=== PATIENT | female | born 1950 | race Caucasian/White ===

== ENCOUNTER 2019-02-22 14:07 | Inpatient (IN) | payer MEDICARE, MEDICAID ==
[~2019-02-22] VITALS: Ht 160 cm; Wt 49.9 kg
[~2019-02-22 14:07] MED LIST: ALBU8.5H8 INH; ASPI-1169 PO; ATOR40TA PO; CALC-20 PO; DONE5TAB34 PO; ESOM20CA32 PO; FLUT1DIS3 INH; PANT40TA2 PO
--- NOTE | 2019-02-22 14:53 | NUR ---
[facility] FOR MEDICAL CLEARANCE, ON 5150 FOR DTS. PT IS EXTREMELY AGITATED, YELLING THAT SHE NEEDS TO GO OUTSIDE AND SMOKE, AND WANTS TO GO HOME. SHE HAS PERIODS OF CALM WHERE SHE COMPLIMENTS STAFF. NO ACUTE DISTRESS NOTED. SKIN IS WARM, DRY, INTACT. READY FOR EVAL.
[2019-02-22] MEDS ORDERED: OLANZAPINE 10 MG VIAL IM ONE ×2 (15:09→15:30)
[2019-02-22 15:11] LABS: BASOPHILS # (AUTO) 0.1 /CMM (0.0-0.2); BASOPHILS % (AUTO) 0.7 % (0.0-2.0); EOSINOPHILS % (AUTO) 1.3 % (0.0-6.0); HEMATOCRIT 41 % (33-45); HEMOGLOBIN 13.5 g/dL (11.5-14.8); LYMPHOCYTES # (AUTO) 2.3 /CMM (0.8-4.8); LYMPHOCYTES % (AUTO) 22.2 % (20.0-44.0); MEAN CORPUSCULAR HGB CONC 33 g/dl (31.0-36.0); MEAN CORPUSCULAR VOLUME 90 fL (82-100); MONOCYTES # (AUTO) 0.8 /CMM (0.1-1.30); MONOCYTES % (AUTO) 8.1 % (2.0-12.0); NEUTROPHILS % (AUTO) 67.7 % (43.0-81.0); PLATELET COUNT (AUTO) 396 /CMM (150-450); RED BLOOD CELL COUNT(AUTO) 4.56 MIL/uL (4.0-5.2); WHITE BLOOD COUNT (AUTO) 10.3 K/uL (4.3-11.0)
[2019-02-22 15:19] LABS: CALCIUM, SERUM 9.7 mg/dL (8.5-10.1); CARBON DIOXIDE 28 mmol/L (21-32); CHLORIDE 108 mmol/L (98-107); CREATININE 0.8 mg/dL (0.6-1.3); GLUCOSE 110 mg/dL (74-106); POTASSIUM 4.1 mmol/L (3.5-5.1); SODIUM SERUM 143 mmol/L (136-145); UREA NITROGEN, BLOOD 23 mg/dL (7-18)
[2019-02-22] MEDS ORDERED: ESCI10TA PO (15:27)
[2019-02-22] MEDS ORDERED: OLAN10TA3 PO (15:27)
[2019-02-22] MEDS ORDERED: BENZ0.5T43 PO (15:27)
[2019-02-22] MEDS ORDERED: ALBU8.5H8 INH (15:28)
[2019-02-22] MEDS ORDERED: ACET-868 PO (15:28)
[2019-02-22 15:30] LABS: ALANINE AMINOTRANSFERASE 27 U/L (12-78); ALBUMIN 3.7 g/dL (3.4-5.0); ALCOHOL, BLOOD < 3 mg/dL (0-0); ALKALINE PHOSPHATASE 107 U/L (46-116); ASPARTATE AMINOTRANSFERASE 16 U/L (15-37); BILIRUBIN,DIRECT 0.1 mg/dL (0.0-0.2); BILIRUBIN,TOTAL 0.2 mg/dL (0.2-1.0); TOTAL PROTEIN, SERUM 7.3 g/dL (6.4-8.2)
[2019-02-22 15:42] LABS: ACETAMINOPHEN 0 ug/ml (10-30)
--- NOTE | 2019-02-22 15:45 | NUR ---
REPORT GIVEN TO ELLIS GILES FOR JODY
--- NOTE | 2019-02-22 16:02 | NUR ---
URINE COLLECTED VIA STRAIGHT CATH PER PROTOCOL AND SENT TO STAT LAB
[2019-02-22 16:10] LABS: APPEARANCE,URINE Clear (CLEAR); BILIRUBIN,URINE Negative (NEGATIVE); BLOOD, URINE Negative Ery/uL (NEGATIVE); COLOR,URINE Yellow (YELLOW); KETONES,URINE Negative (NEGATIVE); LEUKOCYTE ESTERASE ,URINE Negative (NEGATIVE); NITRITE, URINE Negative (NEGATIVE); PH,URINE 5.5 (5.0-8.0); PROTEIN,URINE Negative (NEGATIVE); UGLUCOSE Negative (NEGATIVE); UROBILINOGEN,URINE 0.2 EU/dL (0.2)
--- NOTE | 2019-02-22 16:55 | NUR ---
[facility]
[2019-02-22] MEDS ORDERED: BLOOD SUGAR DIAGNOSTIC 1 EACH STRIP IN ONE (17:30)
[2019-02-22] MEDS ORDERED: MAG HYDROX/AL HYDROX/SIMETH 30 ML UDC PO PRN (17:30)
[2019-02-22] MEDS ORDERED: MAGNESIUM HYDROXIDE 30 ML UDC PO PRN (17:30)
--- NOTE | 2019-02-22 18:25 | NUR ---
GPS/RN-NOTES ADMITTED 68 YEARS OLD FEMALE PATIENT ON 5150 FOR DTS. PATIENT WAS UNDER THE CARE OF DR. MOURA ( PSYCHIATRIST) AND FRANCE CONTRERAS ( NETWORK ENGINEERING ADVISOR) BOTH MADE AWARE OF THE ADMISSION. UPON FACE TO FACE ASSESSMENT PATIENT ALERT ORIENTED X2 AMBULATORY WITH STEADY GAIT.HOLD WAS VERIFIED AND ADVISEMENT GIVEN TO THE PATIENT .PATIENT DENIES SI/HI AT THIS TIME. PATIENT'S RIGHT GIVEN AND WAS DISCUSS WITH UNDERSTANDING. CONTRABAND DONE ,REFUSED FULL BODY ASSESSMENT AT THIS TIME. PATIENT WAS ORIENTED IN THE UNIT AND UNIT POLICIES. PER RECORD PATIENT HAD OMAR CAPUTO TRUCK DRIVER HEAVY CALL [phone] AND LEFT [facility] VIA VOICE MAIL.STILL AWAITING FOR CALL RAYNA. WILL ENDORSE TO INCOMING NURSE FOR CONTINUITY OF ADMISSION AND CARE .
[2019-02-22 18:36] VITALS: BP 138/91
[2019-02-22] MEDS ORDERED: ACETAMINOPHEN 325 MG TABLET PO PRN (19:30)
[2019-02-22] MEDS ORDERED: ALBUTEROL FS 2.5 MG/3 ML VIAL.NEB NEB PRN (19:37)
[2019-02-22 20:00] VITALS: BP 110/74
[2019-02-22] MEDS: ATORVASTATIN 40 MG TABLET PO SCH (21:55)
[2019-02-23] MEDS: LORAZEPAM 0.5 MG TABLET PO PRN (06:28)
--- NOTE | 2019-02-23 06:30 | NUR ---
RN NOTES PT. is anxious and wants to have cigarette.. charge nurse talked to the pt and explained the no smoking policy of the unit but pt. still wants to have some cigarette.. ativan 1mg po given for anxiety, v/s stable
[2019-02-23 07:34] LABS: CHOLESTEROL 98 mg/dL (<200); HDL CHOLESTEROL 45 mg/dL (40-60); LDL 48 mg/dL (0-99); TRIGLYCERIDES 87 mg/dL (30-150)
[2019-02-23 07:40] LABS: ALBUMIN 3.3 g/dL (3.4-5.0); BILIRUBIN,TOTAL 0.5 mg/dL (0.2-1.0); CALCIUM, SERUM 9.4 mg/dL (8.5-10.1); CREATININE 0.8 mg/dL (0.6-1.3); POTASSIUM 4.3 mmol/L (3.5-5.1); TOTAL PROTEIN, SERUM 6.8 g/dL (6.4-8.2)
[2019-02-23 08:00] VITALS: BP 117/52
[2019-02-23] MEDS: NICOTINE PATCH (14MG) 14 MG PATCH.TD24 TD SCH (08:14)
[2019-02-23] MEDS: FLUTICASONE/VILANTEROL 1 EACH BLST.W.DEV IH SCH (08:14)
[2019-02-23] MEDS: OLANZAPINE 5 MG TABLET PO SCH (19:03)
[2019-02-23] MEDS: BENZTROPINE MESYLATE (1 MG) 1 MG TABLET PO SCH (19:03)
[2019-02-23 20:16] VITALS: BP 131/61
[2019-02-23] MEDS: TEMAZEPAM 7.5 MG CAPSULE PO PRN (22:13)
[2019-02-23] MEDS: ATORVASTATIN 40 MG TABLET PO SCH (22:13)
[2019-02-24] MEDS: OLANZAPINE 5 MG TABLET PO SCH ×2 (06:39→18:00)
[2019-02-24] MEDS: BENZTROPINE MESYLATE (1 MG) 1 MG TABLET PO SCH ×2 (06:39→18:00)
[2019-02-24 08:00] VITALS: BP 112/66
--- NOTE | 2019-02-24 08:26 | NUR ---
initial pt walking around unit stating she [facility]. Now she wants to go home ideals are3 flighty unsure what she wants.
[2019-02-24] MEDS ORDERED: OLANZAPINE 5 MG TABLET PO SCH (09:00)
[2019-02-24] MEDS: SERTRALINE HCL 50 MG TABLET PO SCH (09:09)
[2019-02-24] MEDS: NICOTINE PATCH (14MG) 14 MG PATCH.TD24 TD SCH (09:09)
[2019-02-24] MEDS: FLUTICASONE/VILANTEROL 1 EACH BLST.W.DEV IH SCH (09:16)
--- NOTE | 2019-02-24 09:46 | NUR ---
WOUND CARE CONSULT: PT PRESENTS AMBULATORY AND CONTINENT WITH LESION TO ABDOMEN WHICH PT STATES IS PSORIASIS. DEFER TO MD FOR LESION. WILL SEE PRN. CURRENT MAXIMILIANO SCORE IS 22.
--- NOTE | 2019-02-24 13:30 | NUR ---
PT KEEPS ASKING TO TAKE TO [facility] THEN APARTMENT IN [place] TO GET FLAT SCREEN TV HOWEVER PT RESIDES AT [facility]
[2019-02-24] MEDS: LORAZEPAM 0.5 MG TABLET PO PRN ×2 (13:48→21:35)
--- NOTE | 2019-02-24 14:46 | NUR ---
GROUP NOTE: SW encouraged pt to participate in group therapy on this present day to discuss "discharge planning." Pt is disruptive, confused with disorganized thought process and unable to sit in a group setting and participate in a group discussion.
--- NOTE | 2019-02-24 14:57 | NUR ---
SW called the pts social scientist, Olimpia ([phone]), and left her a voicemail stating that the SW would like to discuss the pts case.
--- NOTE | 2019-02-24 15:48 | NUR ---
Initial Discharge Plan: Pt is currently resides at [facility] located at [address] [place] [address]; . MADY was not able to speak to the recycle coordinator to determine whether or not the pt can return because she was out today. MADY will work with the pt and the MD regarding appropriate discharge planning. SW will form a safe and proper discharge.
--- NOTE | 2019-02-24 15:49 | NUR ---
Tonja from [facility] located at [address] [place] [address]; called the SW and stated that the pt can return to the facility once she is discharged from the hospital.
[2019-02-24 16:19] VITALS: BP 125/98
--- NOTE | 2019-02-24 18:31 | NUR ---
CLOSING PT GIVEN ALL MEDICATIONS NEEDS TENDED TO KEPT SAFE BED IN LOW POSITION WITH GIVEN REPORT TO PM NURSE FOR CONTINUITY OF CARE
[2019-02-24 20:00] VITALS: BP 125/94
[2019-02-24] MEDS: ATORVASTATIN 40 MG TABLET PO SCH (21:35)
[2019-02-24] MEDS: TEMAZEPAM 7.5 MG CAPSULE PO PRN (21:36)
[2019-02-25] MEDS: BENZTROPINE MESYLATE (1 MG) 1 MG TABLET PO SCH ×2 (06:29→18:41)
[2019-02-25] MEDS: OLANZAPINE 5 MG TABLET PO SCH ×2 (06:29→18:41)
[2019-02-25 08:00] VITALS: BP 103/63
[2019-02-25] MEDS: LORAZEPAM 0.5 MG TABLET PO PRN (08:01)
[2019-02-25] MEDS: SERTRALINE HCL 50 MG TABLET PO SCH (08:01)
[2019-02-25] MEDS: NICOTINE PATCH (14MG) 14 MG PATCH.TD24 TD SCH (08:01)
--- NOTE | 2019-02-25 08:01 | NUR ---
a little agitated,given ativan 1 mg po.
[2019-02-25] MEDS: FLUTICASONE/VILANTEROL 1 EACH BLST.W.DEV IH SCH (09:26)
[2019-02-25] MEDS: ACETAMINOPHEN 325 MG TABLET PO PRN (10:59)
--- NOTE | 2019-02-25 11:09 | NUR ---
medicated for headache with tylenol 650 mg po.
[2019-02-25 16:00] VITALS: BP 112/54
--- NOTE | 2019-02-25 19:04 | NUR ---
out at [facility].multiple requests.
--- NOTE | 2019-02-25 19:10 | NUR ---
RN INITIAL NOTES: RECEIVED REPORT FROM CHAO GILES. PT IN BED, AWAKE, A/O X2-3. ON RA RESPIRATIONS EVEN AND UNLABORED. DENIES ANY PAIN OR DISCOMFORT AT THIS TIME. AMBULATORY, SELF CARE. DENIES ANY SI/HI AT THIS TIME. PER REPORT PT GETS EASILY IRRITATED WHEN ASKED FOR QUESTIONS. PT REFUSED SKIN ASSESSMENT AT THIS TIME. EDUCATION PROVIDED TO PT. SAFETY PRECAUTIONS FOR FALL INITIATED, SIDE RAILS UP X3 FOR SAFETY. WILL CONTINUE MONITORING [id number] FOR SAFETY AND OTHER CHANGES IN BEHAVIOR.
[2019-02-25 20:00] VITALS: BP 112/77
[2019-02-25] MEDS: ATORVASTATIN 40 MG TABLET PO SCH (21:24)
[2019-02-25] MEDS: TEMAZEPAM 7.5 MG CAPSULE PO PRN (21:25)
--- NOTE | 2019-02-25 21:25 | NUR ---
prn restoril: pt requested for sleeping pill, prn restoril administered at this time.
[2019-02-26] MEDS: OLANZAPINE 5 MG TABLET PO SCH ×2 (06:20→18:03)
[2019-02-26] MEDS: BENZTROPINE MESYLATE (1 MG) 1 MG TABLET PO SCH ×2 (06:20→18:03)
[2019-02-26 08:00] VITALS: BP 116/61
[2019-02-26] MEDS: LORAZEPAM 0.5 MG TABLET PO PRN ×2 (08:12→20:22)
[2019-02-26] MEDS: NICOTINE PATCH (14MG) 14 MG PATCH.TD24 TD SCH (08:12)
[2019-02-26] MEDS: SERTRALINE HCL 50 MG TABLET PO SCH (08:12)
--- NOTE | 2019-02-26 08:12 | NUR ---
rn notes administered ativan 1 mg po prn for anxiety, yelling, v/s taken bp-116/61, p-67, continued monitoring.
[2019-02-26] MEDS: FLUTICASONE/VILANTEROL 1 EACH BLST.W.DEV IH SCH (08:14)
[2019-02-26 15:54] VITALS: BP 150/68
[2019-02-26 20:30] VITALS: BP 134/62
[2019-02-26] MEDS: ATORVASTATIN 40 MG TABLET PO SCH (21:09)
[2019-02-26] MEDS: TEMAZEPAM 7.5 MG CAPSULE PO PRN (22:59)
[2019-02-27] MEDS: BENZTROPINE MESYLATE (1 MG) 1 MG TABLET PO SCH ×2 (06:08→17:57)
[2019-02-27] MEDS: OLANZAPINE 5 MG TABLET PO SCH ×2 (06:08→17:57)
[2019-02-27 08:00] VITALS: BP 149/85
[2019-02-27] MEDS: SERTRALINE HCL 50 MG TABLET PO SCH (08:51)
[2019-02-27] MEDS: FLUTICASONE/VILANTEROL 1 EACH BLST.W.DEV IH SCH (08:51)
[2019-02-27] MEDS: NICOTINE PATCH (14MG) 14 MG PATCH.TD24 TD SCH (08:51)
--- NOTE | 2019-02-27 09:50 | NUR ---
Sundeep from [facility] called the SW and inquired about when the pt would be returning to the facility. SW stated that she will inform the facility once the psychiatrist believes that the pt is stable enough to return.
[2019-02-27] MEDS: LORAZEPAM 0.5 MG TABLET PO PRN ×2 (10:55→19:29)
--- NOTE | 2019-02-27 11:00 | NUR ---
RN NOTES PT NOTED BECOMING INCREASINGLY MORE AND MORE AGITATED. PRN 1 MG ATIVAN GIVEN. WILL CONTINUE TO MONITOR.
--- NOTE | 2019-02-27 13:25 | NUR ---
SW called the pts social media manager, Olimpia ([phone]), and left her a voicemail stating that the SW would like to discuss the pts case.
--- NOTE | 2019-02-27 13:36 | NUR ---
MADY spoke to the pts geriatric social work professor, Olimpia ([phone]), and was informed that [facility] has an open case with the pt and that they are requesting that the pt be placed in a locked facility. She provided the SW with the [facility] SW contact information.
--- NOTE | 2019-02-27 14:10 | NUR ---
SW called pts [facility] Cabin Supervisor, Ronda Carrera ([phone]), and left a voicemail stating that the SW would like to discuss the pt and her case.
--- NOTE | 2019-02-27 15:33 | NUR ---
Group Note: SW encouraged pt to participate in group therapy on 02/27/19 at 2pm discussing discharge planning. Pt is disruptive, confused with disorganized thought process and unable to sit in a group setting and participate in a group discussion.
[2019-02-27 16:00] VITALS: BP 145/95
[2019-02-27 19:57] VITALS: BP 120/73
[2019-02-27] MEDS: OLANZAPINE 10 MG TABLET PO SCH (21:38)
[2019-02-27] MEDS: ATORVASTATIN 40 MG TABLET PO SCH (21:38)
[2019-02-27] MEDS: TEMAZEPAM 7.5 MG CAPSULE PO PRN (22:57)
[2019-02-28] MEDS: LORAZEPAM 0.5 MG TABLET PO PRN ×2 (04:17→08:36)
[2019-02-28] MEDS: BENZTROPINE MESYLATE (1 MG) 1 MG TABLET PO SCH ×2 (06:19→17:50)
[2019-02-28] MEDS: OLANZAPINE 5 MG TABLET PO SCH (08:17)
[2019-02-28] MEDS: SERTRALINE HCL 50 MG TABLET PO SCH (08:18)
[2019-02-28] MEDS: NICOTINE PATCH (14MG) 14 MG PATCH.TD24 TD SCH (08:18)
[2019-02-28] MEDS: FLUTICASONE/VILANTEROL 1 EACH BLST.W.DEV IH SCH (08:19)
--- NOTE | 2019-02-28 08:36 | NUR ---
RN NOTES ADMINISTERED ATIVAN 1 MG PO PRN FOR ANXIETY, IRRITABLE, PARANOIA, V/S TAKEN BP-120/30, P-83, CONTINUED MONITORING.
--- NOTE | 2019-02-28 15:33 | NUR ---
Group Note: SW encouraged pt to participate in group therapy on 02/28/19 at 2pm discussing support systems and their impact. Pt was disruptive, confused with disorganized thought process and was unable to sit in a group setting and participate in a group discussion. Pt stated that she wanted to go to her home to retrieve her belongings. SW informed her of her reality and that her home is a SNF and the pt refused to continue speaking.
[2019-02-28 16:03] VITALS: BP 127/77
--- NOTE | 2019-02-28 19:45 | NUR ---
RN NOTES RECEIVED REPORT FROM [employer] RN. FOUND Pt AWAKE, WALKING AROUND DOWN THE AZAR. NO S/S OF ACUTE DISTRESS OR SOB NOTED. RESPIRATIONS EVEN AND UNLABORED WITH EQUAL CHEST RISE AND FALL. Pt IS ABLE TO COMMUNICATE AND MAKE NEEDS KNOWN AND ANSWER QUESTIONS. SAFETY MEASURES IN PLACE. WILL CONTINUE TO MONITOR Pt's CONDITION AND SAFETY THROUGHOUT THE NIGHT.
[2019-02-28 21:08] VITALS: BP 100/59
[2019-02-28] MEDS: OLANZAPINE 10 MG TABLET PO SCH (21:08)
[2019-02-28] MEDS: ATORVASTATIN 40 MG TABLET PO SCH (21:08)
[2019-02-28] MEDS: ACETAMINOPHEN 325 MG TABLET PO PRN (21:09)
[2019-02-28] MEDS: TEMAZEPAM 7.5 MG CAPSULE PO PRN (21:56)
[2019-03-01] MEDS: BENZTROPINE MESYLATE (1 MG) 1 MG TABLET PO SCH ×2 (06:37→17:37)
[2019-03-01 08:00] VITALS: BP 152/90
[2019-03-01] MEDS: SERTRALINE HCL 50 MG TABLET PO SCH (08:20)
[2019-03-01] MEDS: FLUTICASONE/VILANTEROL 1 EACH BLST.W.DEV IH SCH (08:20)
[2019-03-01] MEDS: OLANZAPINE 5 MG TABLET PO SCH (08:20)
[2019-03-01] MEDS: NICOTINE PATCH (14MG) 14 MG PATCH.TD24 TD SCH (08:20)
[2019-03-01] MEDS: LORAZEPAM 0.5 MG TABLET PO PRN ×2 (12:38→19:40)
--- NOTE | 2019-03-01 15:39 | NUR ---
Group Note: SW went to patient's room to invite patient to attend today's support group at 2:45pm regarding positive coping mechanisms being held in the activities room. Patient presented laying on her bed sleeping. SW attempted to wake patient but they remained sleeping.
--- NOTE | 2019-03-01 15:45 | NUR ---
MADY faxed a referral to [facility] with attention to Janay to the fax number: [phone].
[2019-03-01 16:00] VITALS: BP 140/72
[2019-03-01 20:08] VITALS: BP 140/59
[2019-03-01] MEDS: ATORVASTATIN 40 MG TABLET PO SCH (21:08)
[2019-03-01] MEDS: OLANZAPINE 10 MG TABLET PO SCH (21:08)
[2019-03-02] MEDS: TEMAZEPAM 7.5 MG CAPSULE PO PRN (01:29)
[2019-03-02] MEDS: BENZTROPINE MESYLATE (1 MG) 1 MG TABLET PO SCH ×2 (06:31→18:30)
[2019-03-02 08:00] VITALS: BP 120/75
[2019-03-02] MEDS: FLUTICASONE/VILANTEROL 1 EACH BLST.W.DEV IH SCH (09:51)
[2019-03-02] MEDS: SERTRALINE HCL 50 MG TABLET PO SCH (09:51)
[2019-03-02] MEDS: NICOTINE PATCH (14MG) 14 MG PATCH.TD24 TD SCH (09:51)
[2019-03-02] MEDS: OLANZAPINE 10 MG TABLET PO SCH ×2 (09:52→21:18)
--- NOTE | 2019-03-02 10:44 | NUR ---
Pt was accepted to [facility] per Diego ([phone]).
[2019-03-02 16:00] VITALS: BP 125/76
[2019-03-02 20:11] VITALS: BP 128/72
[2019-03-02] MEDS: ATORVASTATIN 40 MG TABLET PO SCH (21:18)
[2019-03-03] MEDS: BENZTROPINE MESYLATE (1 MG) 1 MG TABLET PO SCH (05:59)
[2019-03-03 08:00] VITALS: BP 123/61
[2019-03-03] MEDS: FLUTICASONE/VILANTEROL 1 EACH BLST.W.DEV IH SCH (09:05)
[2019-03-03] MEDS: SERTRALINE HCL 50 MG TABLET PO SCH (09:06)
[2019-03-03] MEDS: OLANZAPINE 10 MG TABLET PO SCH (09:06)
[2019-03-03] MEDS: NICOTINE PATCH (14MG) 14 MG PATCH.TD24 TD SCH (09:06)
--- NOTE | 2019-03-03 10:47 | NUR ---
MADY called the pts social media executive, Olimpia ([phone]), and informed her that the pt will be discharged today to [facility]. She stated that she will inform the [facility] SW, Ronda Carrera.
--- NOTE | 2019-03-03 10:51 | NUR ---
MADY faxed a clearance to [facility] to the fax number: [phone].
--- NOTE | 2019-03-03 12:10 | NUR ---
GPS LAMP ASSEMBLER NOTES Patient discharged for [facility] at this time. Patient in stable condition. VS stable with no acute distress. Breathing even and unlabored on room air with no respiratory distress. Denies pain. Denies SI/HI. Skin assessment pictures taken and placed in chart. Medication reconciliation and discharge orders reviewed with Patient. Patient is A/O x 2. Obtained witness to sign for paperwork. All belongings with Patient. Patient picked up by Ambulance transport. Report given to Mirian SERRATO. Addendum: 03/03/19 at 1344 by JENNIFER LAIRD RN Denies auditory and visual hallucinations at this time.
--- NOTE | 2019-03-03 13:23 | NUR ---
Discharge Note: Pt was discharged to [facility] (SNF) located at [address] [place] [address]; ([phone]). Pt was discharged via [facility] at 11am and will be taken to [address]. Pts nurse case management, Olimpia ([phone]), was informed of the discharge. Upon discharge, the pt appeared to be in a euthymic mood and presented with a distressed affect. Pt denied both suicidal and homicidal ideation as well as auditory and visual hallucinations. Pt will be under the care of psychiatrist, Dr. Powell, located at [address], [place] [address]; and curtain cleaner, Dr. Camejo, located at [facility] [place] [address]; .
== END 2019-03-03 12:10 | DRG 885 ==
LOC: ER 14:18 → GPS 16:39
PROVIDERS: ADMIT Psychiatry & Neurology Psychiatry; ATTEND Nurse Practitioner Acute Care
DX: F25.9 Schizoaffective disorder, unspecified (principal); F03.91 Unspecified dementia, unspecified severity, with behavioral disturbance; E44.1 Mild protein-calorie malnutrition; Z68.1 Body mass index [BMI] 19.9 or less, adult; R45.851 Suicidal ideations; F32.9 Major depressive disorder, single episode, unspecified; I10 Essential (primary) hypertension; K21.9 Gastro-esophageal reflux disease without esophagitis; Z86.73 Personal history of transient ischemic attack (TIA), and cerebral infarction without residual deficits; J44.9 Chronic obstructive pulmonary disease, unspecified; Z91.5 Personal history of self-harm; E88.09 Other disorders of plasma-protein metabolism, not elsewhere classified; R79.89 Other specified abnormal findings of blood chemistry
CPT/HCPCS: 36415; 80048-TC; 80053-TC; 80061-TC; 80076-TC; 80305; 81000-TC; 82962-TC; 85025-TC; 87081-TC; 87086-TC; G0480; J3490